=== PATIENT | male | born 1935 | race Caucasian/White ===

== ENCOUNTER → 2016-12-02 | Outpatient (CLI) | payer OTHER ==
[~2016-12-02] MED LIST: AMLODIPINE BESYL5 MG PO; ASPIRIN EC81 M1 PO; ATORVASTATIN CA20 MG PO; BROMOCRIPTINE ME5 MG PO; BROMOCRIPTINE2.5 M1 PO; CALTRATE PLUS1 EACH PO; COUMADIN 2 MG TA2 M1; FISH OIL + D31 EACH PO; HM FISH OIL 1,1 EACH PO; HYDROCODON-ACE1 EAC8; LEVOXYL75 MCG PO; MULTIVIT &0.5 MG/1 M PO; PAIN RELIEVER500 M3 PO
[2016-12-02 08:20] VITALS: BP 125/70
[2016-12-02 23:10] LABS: CORTISOL 30 MIN 14.7 ug/dL (Not Estab.); CORTISOL 60 MIN 17.6 ug/dL (Not Estab.); CORTISOL BASELINE 7.1 ug/dL (())
== END ==
LOC: OPONC 07:15
PROVIDERS: Internal Medicine
DX: E27.40 Unspecified adrenocortical insufficiency (principal)
CPT/HCPCS: 95113